=== PATIENT | female | born 2000 | race Caucasian/White ===

== ENCOUNTER 2024-11-25 01:04 | Emergency (ER) | payer MEDICAID ==
[2024-11-25] MEDS: Ketorolac 30 MG/ML SDV IM ONE (01:15)
[2024-11-25] MEDS: Ketorolac 30 MG/ML SDV ONE (01:18)
[2024-11-25] MEDS: Amoxicillin 500 MG Cap PO ONE (01:44)
[2024-11-25] MEDS: Ketorolac 10 MG Tab PO ONE (01:46)
== END 2024-11-25 02:00 | disposition home or self-care (01) ==
LOC: KA.ED 01:04
DX: S02.5XXA Fracture of tooth (traumatic), initial encounter for closed fracture (principal); K04.7 Periapical abscess without sinus; X58.XXXA Exposure to other specified factors, initial encounter
CPT/HCPCS: 96372; 99282; A9270; J1885; 99283

== ENCOUNTER 2025-08-05 15:00 | Emergency (ER) | payer OTHER, MEDICAID ==
[2025-08-05] MEDS: Acetaminophen/HYDROcodone 325-5 MG Tab PO ONE (15:20)
[2025-08-05] MEDS: Ondansetron 4 MG Tab.DIS PO ONE (15:21)
== END 2025-08-05 16:25 | disposition home or self-care (01) ==
LOC: KA.ED 15:00
DX: S67.190A Crushing injury of right index finger, initial encounter (principal); Z79.899 Other long term (current) drug therapy; W23.0XXA Caught, crushed, jammed, or pinched between moving objects, initial encounter
CPT/HCPCS: 73140-F6; 99283; A9270-GY